=== PATIENT | female | born 1955 | race Caucasian/White ===

== ENCOUNTER 2024-11-19 19:26 | Inpatient (IN) | payer MEDICARE, OTHER ==
[~2024-11-19] VITALS: Ht 167.6 cm; Wt 68.0 kg
[2024-11-19] MEDS ORDERED: HALOPERIDOL LACTATE 5 MG/1 ML VIAL ONE ×2 (19:44→20:17)
[2024-11-19] MEDS ORDERED: LORAZEPAM 2 MG/1 ML VIAL ONE ×2 (19:45→20:17)
[2024-11-19] MEDS: LORAZEPAM 2 MG/1 ML VIAL IM ONE ×2 (19:48→20:24)
[2024-11-19] MEDS: HALOPERIDOL LACTATE 5 MG/1 ML VIAL IM ONE ×2 (19:48→20:24)
[2024-11-19 19:59] LABS: PLATELET COUNT (AUTO) 428 K/uL (179-408); RED BLOOD CELL COUNT(AUTO) 3.74 MIL/uL (3.63-4.92); RED CELL DISTRIBUTION WIDTH 19.6 % (12.3-17.7); WHITE BLOOD COUNT (AUTO) 12.6 K/uL (3.8-11.8)
[2024-11-19 20:09] LABS: CREATININE 0.9 mg/dL (0.6-1.3); SODIUM SERUM 136 mmol/L (136-145); UREA NITROGEN, BLOOD 22 mg/dL (7-18)
[2024-11-19 20:15] LABS: ASPARTATE AMINOTRANSFERASE 13 U/L (15-37); TOTAL PROTEIN, SERUM 7.6 g/dL (6.4-8.2)
[2024-11-19 21:09] LABS: *BILIRUBIN,URIN NEGATIVE (NEGATIVE); *BLOOD, URINE 2+ (NEGATIVE); *CLARITY,URINE CLEAR (CLEAR); *KETONES,URINE NEGATIVE (NEGATIVE); *PROTEIN,URINE NEGATIVE (NEGATIVE); *UROBILINOGEN,URINE 0.2 E.U./dl (NORMAL); LEUKOCYTE ESTERASE ,URINE TRACE (NEGATIVE); NITRITE, URINE POSITIVE (NEGATIVE); UGLUCOSE NEGATIVE (NEGATIVE)
[2024-11-19 21:21] LABS: *COLOR,URINE LIGHT YELLOW (YELLOW)
[2024-11-19 21:30] VITALS: BP 100/70
[2024-11-19 21:33] LABS: SQUAMOUS EPITHELIAL CELL,UR FEW /HPF (NONE SEEN)
[2024-11-20] MEDS ORDERED: BENZ1TAB7 PO (00:27)
[2024-11-20] MEDS ORDERED: LORA-259 PO (00:27)
[2024-11-20] MEDS ORDERED: DIVA250T4 PO (00:27)
[2024-11-20] MEDS ORDERED: LACT10SO58 PO (00:27)
[2024-11-20] MEDS ORDERED: RISP2TAB85 PO (00:27)
[2024-11-20] MEDS ORDERED: DENO120V SQ (00:27)
[2024-11-20] MEDS ORDERED: ASCO500C18 PO (00:27)
[2024-11-20] MEDS ORDERED: SENN8.6T19 PO (00:27)
[2024-11-20] MEDS ORDERED: ANAS1TAB50 PO (00:27)
[2024-11-20] MEDS ORDERED: PALB100C PO (00:27)
[2024-11-20] MEDS ORDERED: MAGNESIUM HYDROXIDE 30 ML LIQUID UDC PO PRN (01:15)
[2024-11-20] MEDS ORDERED: TEMAZEPAM 7.5 MG CAPSULE PO PRN ×2 (01:15)
[2024-11-20] MEDS ORDERED: MAG HYDROX/AL HYDROX/SIMETH 30 ML LIQUID UDC PO PRN (01:15)
[2024-11-20] MEDS: BLOOD SUGAR DIAGNOSTIC 1 EACH STRIP VI ONE (01:47)
[2024-11-20] MEDS ORDERED: LACTULOSE PO SCH (09:00)
[2024-11-20] MEDS ORDERED: DIVALPROEX 250 MG TABLET.DR PO SCH (09:00)
[2024-11-20] MEDS: LACTULOSE 20 G/30 ML LIQUID UDC PO SCH (09:02)
[2024-11-20] MEDS: ASCORBIC ACID 500 MG TABLET PO SCH (09:06)
[2024-11-20] MEDS: SENNOSIDES 1 TABLET PO SCH (09:06)
[2024-11-20] MEDS: ANASTROZOLE 1 MG TABLET PO SCH (09:18)
[2024-11-20] MEDS: ACETAMINOPHEN 325 MG TABLET PO PRN (11:00)
[2024-11-20] MEDS: LORAZEPAM 1 MG TABLET PO PRN ×2 (11:33→20:44)
[2024-11-20] MEDS ORDERED: TEMAZEPAM 15 MG CAPSULE PO PRN (13:45)
[2024-11-20] MEDS: TRAZODONE 50 MG TABLET PO SCH (20:44)
[2024-11-20] MEDS: REMEDY ESSENTIAL ZINC PASTE 113 GM TOP SCH (20:49)
[2024-11-21 16:14] VITALS: BP 114/73; TEMP 98; O2SAT 96
[2024-11-21 20:00] VITALS: BP 87/57; TEMP 97.5; O2SAT 90
[2024-11-22 08:52] VITALS: BP 96/54; TEMP 97.8; O2SAT 97
[2024-11-22 16:29] VITALS: BP 112/70; TEMP 97.5; O2SAT 97
[2024-11-23 08:10] VITALS: BP 103/50; TEMP 97.5; O2SAT 97
[2024-11-23 16:23] VITALS: BP 111/70; TEMP 97.5; O2SAT 97
[2024-11-23 19:54] VITALS: BP 108/62; TEMP 97.9; O2SAT 98
[2024-11-24 08:34] VITALS: BP 101/53; TEMP 97.9; O2SAT 98
[2024-11-24 16:22] VITALS: BP 102/60; TEMP 97.9; O2SAT 98
[2024-11-24 20:04] VITALS: BP 104/56; TEMP 97.9; O2SAT 96
[2024-11-24] MEDS ORDERED: TRAZODONE 50 MG TABLET PO SCH (21:00)
[2024-11-24] MEDS: TRAZODONE 100 MG TABLET PO SCH (21:05)
[2024-11-25 08:00] VITALS: BP 86/47; TEMP 97.6; O2SAT 92
[2024-11-25 15:36] VITALS: BP 98/73; TEMP 97.8; O2SAT 95
[2024-11-25] MEDS ORDERED: ENSURE ENLIVE (VAN) 240 ML LIQUID PO SCH (17:00)
[2024-11-26 12:08] LABS: *BILIRUBIN,URIN NEGATIVE (NEGATIVE); *BLOOD, URINE NEGATIVE (NEGATIVE); *CLARITY,URINE CLOUDY (CLEAR); *COLOR,URINE YELLOW (YELLOW); *KETONES,URINE NEGATIVE (NEGATIVE); *PROTEIN,URINE 1+ (NEGATIVE); *UROBILINOGEN,URINE 0.2 E.U./dl (NORMAL); LEUKOCYTE ESTERASE ,URINE 1+ (NEGATIVE); NITRITE, URINE NEGATIVE (NEGATIVE); UGLUCOSE NEGATIVE (NEGATIVE)
[2024-11-26 12:33] LABS: SQUAMOUS EPITHELIAL CELL,UR MANY /HPF (NONE SEEN)
[2024-11-26] MEDS: TRAZODONE 100 MG TABLET PO SCH (20:25)
[2024-11-27 08:15] VITALS: BP 116/74; TEMP 98; O2SAT 96
[2024-11-27 15:05] VITALS: BP 90/58; TEMP 98; O2SAT 96
[2024-11-28] MEDS: OLANZAPINE 10 MG VIAL IM ONE (09:13)
[2024-11-28 09:42] VITALS: BP 110/72; TEMP 98; O2SAT 98
[2024-11-28] MEDS ORDERED: ACETAMINOPHEN 500 MG TABLET PO PRN (13:00)
[2024-11-28 15:37] VITALS: BP 90/53; TEMP 98; O2SAT 98
[2024-11-29 08:18] VITALS: BP 118/72; TEMP 98; O2SAT 98
[2024-11-29 16:43] VITALS: BP 101/61; TEMP 98; O2SAT 98
[2024-11-30 08:14] VITALS: BP 96/56; TEMP 98; O2SAT 98
== END 2024-11-30 15:45 | DRG 885 ==
LOC: ER 19:43 → GPS 23:00
PROVIDERS: ADMIT Psychiatry & Neurology Psychiatry; ATTEND Nurse Practitioner Family
DX: F25.0 Schizoaffective disorder, bipolar type (principal); N18.9 Chronic kidney disease, unspecified; E44.1 Mild protein-calorie malnutrition; N39.0 Urinary tract infection, site not specified; F03.94 Unspecified dementia, unspecified severity, with anxiety; Z79.899 Other long term (current) drug therapy; E88.09 Other disorders of plasma-protein metabolism, not elsewhere classified; K62.3 Rectal prolapse; L22 Diaper dermatitis; D64.9 Anemia, unspecified; R73.9 Hyperglycemia, unspecified; Z91.199 Patient's noncompliance with other medical treatment and regimen due to unspecified reason; Z85.3 Personal history of malignant neoplasm of breast; G40.909 Epilepsy, unspecified, not intractable, without status epilepticus; E03.9 Hypothyroidism, unspecified; E78.5 Hyperlipidemia, unspecified; K21.9 Gastro-esophageal reflux disease without esophagitis; J44.9 Chronic obstructive pulmonary disease, unspecified; Z79.811 Long term (current) use of aromatase inhibitors
CPT/HCPCS: 36415; 80164; 85025; 87086; A9150; J1630; J2060; J2358